=== PATIENT | female | born 1980 | race Caucasian/White ===

== ENCOUNTER → 2018-10-25 | Outpatient (CLI) | payer OTHER ==
[2014-02-22 10:29] VITALS: BMI 40.4
[~2018-10-25] MED LIST: ENOX80DI8 SQ; IBU600 PO; PER PO; PREN-85 PO
--- NOTE | 2018-10-25 17:44 | RADIOLOGY IMAGING REPORT ---
FACILITY: [facility] PATIENT NAME: Rachael Vasquez : 1980 MR: [id number] V: [id number] EXAM DATE: ORDERING PHYSICIAN: SAVITA LAKHANI TECHNOLOGIST: Location: [facility] [place] Patient: Rachael Vasquez : 1980 Visit/Account:[id number] Date of Sevice: 10/25/2018 CT ABDOMEN PELVIS W/O CON HISTORY: Left flank pain x2 weeks TECHNIQUE: Axial images acquired through the abdomen/pelvis. Coronal and sagittal reformatting also performed. No IV contrast administered.Dose Lowering Technique One of the following dose optimization techniques was utilized in the performance of this exam: Autom ated exposure control; adjustment of the mA and/or kV according to the patient's size; or use of an i terative reconstruction technique. Specific details can be referenced in the facility's radiology C T exam operational policy. COMPARISON: CTA chest September 03, 2013 FINDINGS: Visualized lung bases: There is a 4 mm noncalcified nodule in the lateral aspect of the right middle lobe best appreciated on image five of series 3. There is a 3 mm nodule right lower lobe best appreciated on image 13. There is a 6 mm noncalcified nodule lateral aspect right lower lobe best appreciated on image 39 . There is a 7 mm noncalcified slightly spiculated nodule inferior right lower lobe best appreciated on image 57 There is a 7 mm noncalcified nodule posterior aspect left lower lobe best seen on image 31 There is a 4 mm noncalcified nodule posterior aspect of the left lower lobe best seen on image 48 There is a 3 mm subpleural nodule lateral aspect left lower lobe best seen on image 51 Hepatobiliary: Right lobe the liver is enlarged measuring 20.7 cm in length. Spleen: Spleen is borderline enlarged at 12 cm Adrenals: Negative. Pancreas: Negative. 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 There are two metallic clips projecting in the lateral aspect of the right lower pelvis. These may have migrated from the right fallopian tube GI: The appendix is visualized and does not appear inflamed. Vessels/spaces/nodes: There are multiple lymph nodes adjacent to the gastrohepatic ligament. A refe rence node measures 1.3 x 1.1 cm. There appear to be multiple portal caval lymph nodes as well. The study is very limited due to lack of intravenous contrast. A passenger representative node measures 1.4 x 1.1 cm multiple retroperitoneal lymph nodes as well. A reference node measures 1.3 x 0.8 cm and the lef t periaortic region below the level of the renal vessels there multiple mesenteric lymph nodes as wel l a passenger representative node measures 1.3 x 0.8 cm Bones/soft tissues: There is a right lateral ventral hernia containing fat Additional findings: None pertinent. IMPRESSION: There are multiple noncalcified pulmonary nodules measuring up to 7 mm in diameter [employer] FOLLOW-UP GUIDELINES FOR NEWLY DETECTED INCIDENTAL NODULES IN PERSONS 35 YEARS OF AGE OR OLDER. *These recommendations do NOT apply to lung cancer screening, patients with immunosuppression or niecy ents with a known primary malignancy. MULTIPLE SOLID NODULES If nodule size is < 6 mm: * Low risk patient ? No routine follow-up. * High risk patient ? Optional CT at 12 months. If nodule size is 6-8 mm: * Low risk patient ? CT at 3-6 months, then consider CT at 18-24 months if no change. * High risk patient ? CT at 3-6 months, then CT at 18-24 months if no change. If nodule size is > 8 mm: * Low risk patient ? CT at 3-6 months, then consider CT at 18-24 months if no change. * High risk patient ? CT at 3-6 months, then consider CT at 18-24 months if no change. LOW RISK PATIENT: Minimal or absent history of tobacco use and of other known risk factors. HIGH RISK PATIENT: Toba co use, family history of lung cancer, upper pulmonary lobe location of nodul e, presence of emphysema, pulmonary fibrosis, older age.Brenda H, Damian DP, Thaddeus JM, et al. [employer] [facility] for Management of Incidental Pulmonary Nodules Detected on CT Images: From the [employer] 2017. Radiology. [facility] There are tubal ligation clips noted on the left. There are two additional similar-appearing clips i n the lateral aspect the right lower pelvis. These may have migrated from the right fallopian tube. There are numerous lymph nodes throughout the abdomen as described above. Although these may be reac tive given the multiple pulmonary nodules are malignant process should be excluded. The study is ozzie y limited due to the lack of intravenous and oral contrast or repeat study with oral and IV contrast may be of value Right lateral ventral hernia containing fat Report Dictated By: Alexandra Styles MD at 10/25/2018 5:06 PM Report E-Signed By: Alexandra Styles MD at 10/25/2018 5:40 PM WSN:[email or web address]
== END ==
LOC: CT 16:16
PROVIDERS: ATTEND Nurse Practitioner Family
DX: R91.8 Other nonspecific abnormal finding of lung field (principal)
CPT/HCPCS: 74176

== ENCOUNTER → 2018-11-07 | Outpatient (CLI) | payer OTHER ==
[2014-02-22 10:29] VITALS: BMI 40.4
[~2018-11-07] MED LIST changes: +IOPAMIDOL 76% 150 ML INFUS BTL 150 ML ONE
--- NOTE | 2018-11-07 11:44 | RADIOLOGY IMAGING REPORT ---
FACILITY: [facility] - [place] PATIENT NAME: Rachael Vasquez : 1980 MR: [id number] V: [id number] EXAM DATE: ORDERING PHYSICIAN: SAVITA LAKHANI TECHNOLOGIST: Location: Patient: Rachael Vasquez : 1980 Visit/Account:[id number] Date of Sevice: 11/07/2018 CT ABDOMEN PELVIS W/ CON HISTORY: Follow-up lymph nodes. TECHNIQUE: CT abdomen and pelvis 75 cc of Isovue 370 IV. One of the following dose optimization leila hniques was utilized in the performance of this exam: automated exposure control; adjustment of the m A and/or kV according to the patient's size; or use of an iterative reconstruction technique. Specif ic details can be referenced in the facility's radiology CT exam operational policy. COMPARISON: CT abdomen and pelvis 10/25/2018. FINDINGS: Liver/gallbladder: Multiple small hypoenhancing lesions are seen throughout all 7 the liver, each me asuring approximately 3 mm. Gallbladder is normal. Spleen: Normal. Adrenals: Normal. Pancreas: Normal enhancement without evidence of mass. Kidneys/: The right and left kidney demonstrate normal enhancement without evidence of hydronephro sis or mass. Both ureters are normal. Pelvis: Urinary bladder and uterus are normal. Fallopian tube clips are unchanged. GI: There is no focal abnormality in the small bowel or colon. Vessels/spaces/nodes: Multiple lymph nodes are seen along the root of the mesentery, largest measure s 1.1 cm, unchanged. Bones/soft tissues: There is a abdominal hernia consistent with a Spigelian hernia, with fat protrud ing through the defect on the right side, unchanged. Visualized lung bases: 7 mm pleural-based nodule seen in the left lung base, unchanged from the prio r study. There is a 7 mm nodule at the base of the right lung, unchanged. IMPRESSION: 1. Numerous, too many to count, small decreased enhancing lesions in all segments of the liver, each measuring approximately 3 to 5 mm. Differential diagnosis is broad, and would include benign causes such as hamartomas, as well as infectious causes such as microabscesses, as well as metastatic disea se. 2. Multiple slightly prominent lymph nodes along the root of the mesentery, unchanged from 10/25/2018 . Differential diagnosis includes a cystic adenitis or less likely lymphoma. 3. Pulmonary nodules both lung bases, unchanged from 10/25/2018. 4. Right-sided Spigelian hernia. Recommend ultrasound of the liver, for possible feasibility attempt in the future for an ultrasound-g uided biopsy of one of the numerous lesions identified. Report Dictated By: Cy Lee at 11/07/2018 11:23 AM Report E-Signed By: Cy Lee at 11/07/2018 11:39 AM WSN:[email or web address]
== END ==
LOC: CT 09:12
PROVIDERS: ATTEND Nurse Practitioner Family
DX: R93.2 Abnormal findings on diagnostic imaging of liver and biliary tract (principal); R91.8 Other nonspecific abnormal finding of lung field; R59.0 Localized enlarged lymph nodes
CPT/HCPCS: 74177; Q9967

== ENCOUNTER → 2018-11-13 | Outpatient (CLI) | payer OTHER ==
[2014-02-22 10:29] VITALS: BMI 40.4
[~2018-11-13] MED LIST changes: -IOPAMIDOL 76% 150 ML INFUS BTL 150 ML ONE
[2018-11-13 09:48] LABS: PLATELET COUNT, AUTOMATED 161 K/uL (150-450)
== END ==
LOC: LAB 09:34
PROVIDERS: ATTEND Nurse Practitioner Family
DX: K76.89 Other specified diseases of liver (principal)
CPT/HCPCS: 36415; 85025

== ENCOUNTER → 2018-11-21 | Outpatient (CLI) | payer OTHER ==
[2014-02-22 10:29] VITALS: BMI 40.4
[~2018-11-21] MED LIST changes: +IOPAMIDOL 76% 100 ML INFUS BTL 100 ML ONE
--- NOTE | 2018-11-21 10:43 | RADIOLOGY IMAGING REPORT ---
FACILITY: [facility] PATIENT NAME: Rachael Vasquez : 1980 MR: [id number] V: [id number] EXAM DATE: ORDERING PHYSICIAN: SAVITA LAKHANI TECHNOLOGIST: Location: [facility] Patient: Rachael Vasquez : 1980 Visit/Account:[id number] Date of Sevice: 11/21/2018 CT CHEST (CONTRAST) History: Pulmonary nodules TECHNIQUE: Contiguous axial images were performed through the chest to the level of the adrenal gla nds following the administration of IV contrast. Coronal and sagittal reformatting was also perform ed.Dose Lowering Technique One of the following dose optimization techniques was utilized in the performance of this exam: Autom ated exposure control; adjustment of the mA and/or kV according to the patient's size; or use of an i terative reconstruction technique. Specific details can be referenced in the facility's radiology C T exam operational policy. Contrast: 75 mL Isovue-370 COMPARISON STUDIES: CTA chest September 03, [address] abdomen November 07, 2018. Lungs / Pleura: There is a four mm noncalcified nodule in the posterior aspect right upper lobe bes t seen on image 69 of series 4. There is a 3 mm noncalcified nodule posterior lateral aspect right upper lobe best seen on image 74 There is a 3 mm noncalcified subpleural nodule medial aspect of the right upper lobe best seen on tierney ge 78 There is a 3 mm noncalcified nodule posterior aspect of the right upper lobe best seen on image 88 There is a 5 mm noncalcified nodule posterior aspect right upper lobe best seen on image 89 There is a 3 mm nodule on calcified nodule medial aspect right upper lobe best seen on image 99 There is a 5 mm noncalcified nodule medial aspect of the right upper lobe best seen on image 107 There is a 3 mm noncalcified nodule posterior aspect right upper lobe best seen on image 110 There is a 7 mm noncalcified nodule anterior lateral right upper lobe best seen on image 127. There are two separate 2 mm nodules inferior right upper lobe best seen on image 1:30 There is a 7 mm noncalcified nodule abutting the minor fissure best seen on image 148 There is a 3 mm nodule superior medial right middle lobe best seen on image 148 There is a 3 mm nodule anterior aspect right middle lobe best seen on image 176 There is a 4 mm nodule lateral aspect right middle lobe best seen on image 185 There is a 7 mm spiculated noncalcified nodule anterior aspect of the right lower lobe best seen on i mage 241 There is a 7 mm noncalcified nodule posterior lateral aspect of the left lower lobe best seen on imag e 222 There is a 2 mm noncalcified nodule anterior aspect the left lower lobe best seen on image 158 There is a 3 mm noncalcified nodule anterolateral left lower lobe best seen on image 142 There is a 2 mm noncalcified nodule anterior aspect left upper lobe best seen on image 140 There is a 2 mm nodule medial aspect of the left upper lobe best seen on image 123 There is a 3 mm noncalcified nodule posterior aspect of the left upper lobe best seen on image 1:15. There is an additional 3 mm nodule lateral aspect of the left upper lobe best seen on image 114 There is a 7 mm noncalcified nodule medial aspect left upper lobe best seen on image 97 There is a 7 mm subpleural nodule posterior aspect left upper lobe best seen on image 81 There is a 1 mm noncalcified nodule posterior aspect left upper lobe best seen on image 68 There is a 4 mm noncalcified nodule posterior lateral left upper lobe best seen on image 55 There is a 4 mm noncalcified nodule left upper lobe best seen on image 154 These nodules were not apparent on the prior CT the chest from September 03, 2013 Mediastinum/nodes: There is a 1.6 x 1.2 cm pretracheal lymph node in addition to other smaller pretr acheal lymph nodes.. There is a 1.5 x 1.1 cm precarinal lymph node. There is a 1.3 x 0.7 cm AP wind ow lymph node There is a 1.9 x 1.1 cm left hilar lymph node and a 1.2 x 1.3 cm left inf ahilar lymph node in additi on to numerous other hilar lymph nodesThere is a 1.3 x 1 cm left infrahilar lymph node. There is a 1 .9 x 1.2 cm right hilar lymph node in addition to a other right hilar lymph nodes.. There is a 2.3 x 1.5 cm subcarinal lymph node . These lymph nodes were not apparent on the prior CT of the chest Heart and vessels: negative. Musculoskeletal / Body wall: No aggressive appearing bone lesions are seen Upper abdomen: The numerous tiny hypoattenuating lesions seen on the recent CT of abdomen are not a s well depicted on the current examination although direct comparison is difficult as of this current examination is imaged in the arterial phase as opposed to the portal venous phase on the prior study IMPRESSION: At least 27 noncalcified pulmonary nodules are seen throughout the lungs as detailed above. These we re not apparent on a prior CT of the chest from September 03, 2013. Also noted is bilateral hilar and med iastinal adenopathy which was not present on the prior study. The differential diagnosis would inclu de metastatic disease although a benign etiology such as sarcoidosis are also included in the differe ntial diagnosis. The previously noted tiny hypoattenuating lesions throughout the liver as seen on November 07, 2018 are not as well depicted although the current examination was performed in the arterial phase as opposed to the portal venous phase on the prior study. If further evaluation of the liver is desired MR with an d without contrast may be helpful Report Dictated By: Alexandra Styles MD at 11/21/2018 9:59 AM Report E-Signed By: Alexandra Styles MD at 11/21/2018 10:39 AM WSN:[email or web address]
== END ==
LOC: CT 00:45
PROVIDERS: ATTEND Nurse Practitioner Family
DX: R91.1 Solitary pulmonary nodule (principal)
CPT/HCPCS: 71260; Q9967

== ENCOUNTER 2018-12-25 01:32 | Observation (INO) | payer OTHER ==
[2018-12-25] VITALS (13 sets, daily range): BP systolic 105–128; BP diastolic 62–88
[~2018-12-25] VITALS: Ht 154.9 cm; Wt 92.1 kg
[~2018-12-25 01:32] MED LIST changes: +ESCI20TA38 PO; -IOPAMIDOL 76% 100 ML INFUS BTL 100 ML ONE
[2018-12-25] MEDS ORDERED: DEXAMETHASONE SOD 4 MG/ML VIAL ONE (10:58)
[2018-12-25] MEDS ORDERED: LIDOCAINE MPF 1% 5 ML VIAL ONE (10:58)
[2018-12-25] MEDS ORDERED: fentaNYL CITR 250 MCG/5 ML AMP ONE (10:58)
[2018-12-25] MEDS ORDERED: ONDANSETRON 4 MG/2 ML VIAL ONE (10:58)
[2018-12-25] MEDS ORDERED: SUGAMMADEX SOD 200 MG/2 ML SDV ONE (10:58)
[2018-12-25] MEDS ORDERED: PROPOFOL EMUL(*) 10MG/ML 20 ML 20 ML ONE (10:58)
[2018-12-25] MEDS ORDERED: KETAMINE HCL-NS 50 MG/5 ML SYR ONE (10:59)
[2018-12-25] MEDS ORDERED: LEVOFLOXACIN/D5W 750 MG/150 ML 150 ML IVPB ONE (11:50)
[2018-12-25] MEDS ORDERED: CLINDAMYCIN(*) 600 MG/NS 50 ML 50 ML IVPB ONE (11:50)
[2018-12-25] MEDS ORDERED: NORMOSOL R SOLN(*) 1000 ML BAG 1,000 ML IV PRN (12:10)
[2018-12-25] MEDS ORDERED: FAMOTIDINE 20 MG TAB PO ONE (12:10)
[2018-12-25] MEDS ORDERED: LIDOCAINE/SOD BICARB 8.4% SYR ID ONE (12:10)
[2018-12-25] MEDS ORDERED: BUPIVACAINE/EPI 0.5% 50ML VIAL INFIL ONE (12:44)
[2018-12-25] MEDS ORDERED: ePHEDrine 25 MG/5 ML DISP.SYR IVP ONE (12:57)
[2018-12-25] MEDS ORDERED: ROCURONIUM BR 10 MG/ML 5 ML SY 5 ML ONE (13:26)
[2018-12-25] MEDS ORDERED: DESFLURANE 240 ML BTL INH ONE (13:38)
[2018-12-25] MEDS ORDERED: MIDAZOLAM 2 MG/2 ML VIAL IVP PRN (14:10)
[2018-12-25] MEDS ORDERED: PROMETHAZINE 25 MG/ML 1 ML AMP ONE (15:30)
[2018-12-25] MEDS ORDERED: fentaNYL CITR 100 MCG/2 ML AMP ONE ×2 (15:44→16:12)
[2018-12-25] MEDS ORDERED: HYDR-654 PO (15:53)
--- NOTE | 2018-12-25 15:59 | Post Operative Progress Note ---
Post Operative Progress Note Date: Dec 25, 2018 Time: 15:51 Surgeon: dr. tara tapia #[id number] Fleet Assistant: none Anesthesia: gen, local dr. agosto Pre-Op Diagnosis: ventral hernia Post-Op Diagnosis: same Procedure(s): robotic ventral hernia repair with mesh Complications: none Estimated Blood Loss: minimal Date OP Note Dictated: Dec 25, 2018 Time OP Note Dictated: 15:53 MARY TAPIA Dec 25, 2018 15:59
[2018-12-25] MEDS ORDERED: APAP/HYDROCODONE 325/7.5 TAB ONE (17:07)
[2018-12-25] MEDS ORDERED: ONDANSETRON 4 MG/2 ML VIAL IVP PRN (17:20)
[2018-12-25] MEDS ORDERED: APAP/HYDROCODONE 325/7.5 TAB PO PRN (17:20)
--- NOTE | 2018-12-25 18:25 | NUR ---
1700- SBAR RECEIVED FROM ARTURO DARBY. PT. RESTING AND EATING PUDDING. 1710- DR. ZEPEDA CALLED ASKIN ABOUT PT. TOLD THAT PT. IS IN A LOT OF PAIN AND HE DECIDED THAT HE WANTED TO ADMIT HER. 1714- PT. GIVEN PAIN PILL. 1725- PT. STATES THAT PAIN IS A 9/10 SO 50 MCG OF FENTANYL GIVEN. 1734- PT. STATES THAT PAIN IS 7/10 BUT TOLERABLE. 1745- PT. RESTING AND WHEN AROUSED STATES THAT PAIN IS 6/10. 1800- PT. TRANSPORTED TO MED/SURG VIA STRETCHER WITH THE SIDERAILS UP. SBAR GIVEN TO LOUIE DARBY. SEE DISCHARGE ASSESSMENT.
[2018-12-25] MEDS: HYDROmorphone HCL 2 MG/ML SDV IVP PRN (19:26)
[2018-12-25] MEDS: APAP/HYDROCODONE 325/7.5 TAB PO PRN (21:14)
[2018-12-25] MEDS: NS(*) 0.9% 1000 ML BAG 1,000 ML IV PRN (22:07)
--- NOTE | 2018-12-25 23:30 | OPERATIVE REPORT 1 ---
EVENT DATE: December 25, 2018 SURGEON: Haresh Moreno MD ANESTHESIOLOGIST: Romero Baldwin MD ANESTHESIA: General and local. IRON LAUNDER OPERATOR: None. PREOPERATIVE DIAGNOSIS Right spigelian hernia. POSTOPERATIVE DIAGNOSIS Right spigelian hernia. PROCEDURES PERFORMED 1. Robotic ventral hernia repair with mesh. 2. Laparoscopic lysis of adhesions times 10 minutes. FLUIDS IV crystalloid. ESTIMATED BLOOD LOSS Minimal. SPECIMENS None. COMPLICATIONS None. INDICATIONS This is a 38-year-old female with a right spigelian hernia that is bothersome to her. It is painful. On physical exam, the patient's abdomen is soft. She is stable. Risks and benefits of the procedure explained, and consent was signed. DESCRIPTION OF PROCEDURE Patient was taken to the operating room and placed in the supine position. General anesthesia was administered by the anesthesia team. Patient was prepped and draped in the normal sterile fashion. Local analgesia was injected in the dermis below the left costal margin, and a small incision was made. Optiview technique was used to easily enter the abdomen with an 8 mm port. I inspected the abdomen. There was no injury upon entry. After injecting the local analgesia and under direct vision, two more left-sided 8 mm ports were placed, and I decided to exchange the middle 8 mm port with a 12 mm port. LigaSure was used to take down fatty adhesions to the abdominal wall. Once this was done, the robot was docked. Cautery scissors was used to remove more adhered fat from the hernia and some of the hernia sac. This was later removed from the abdomen with an Endo Catch bag. Absorbable V-Loc stitches times two were used to close the hernia defect. A 10 x 15 cm Symbotex mesh was placed. It was secured with multiple absorbable V-Loc stitches on the perimeter and through the midline of the mesh. The mesh was confirmed to be laying flat. Hemostasis was assured. All needles were removed from the abdomen. Laparoscopically, the Endo Catch bag with the fatty tissue was removed, and the large port site was closed with the suture passer and 0 Vicryl stitch. Another port was removed under direct vision. Hemostasis was assured. Final port was then removed. All skin incisions were closed with 4-0 Monocryl subcuticular stitches. More local analgesia was injected. Appropriate dressings were applied. Patient tolerated the procedure well. There were no complications. MTDD
[2018-12-26] MEDS: HYDROmorphone HCL 2 MG/ML SDV IVP PRN (00:14)
[2018-12-26] MEDS: APAP/HYDROCODONE 325/7.5 TAB PO PRN ×4 (01:29→15:07)
[2018-12-26 02:55] VITALS: BP 109/65
--- NOTE | 2018-12-26 07:46 | General Surgery Progress Note ---
Subjective Progress Notes Subjective no acute events Physical Exam Vital Signs Date Time Temp Pulse Resp B/P (MAP) Pulse Ox O2 Delivery O2 Flow Rate FiO2 12/26/18 02:55 98.9 60 12 109/65 (80) 95 Nasal Cannula 3.0 Intake and Output 12/26/18 07:01 Intake Total 3844 ml Balance 3844 ml Intake Oral 1180 ml IV Total 2664 ml # Voids 3 General Appearance: No Acute Distress Cardiovascular: Other (reg rate) GI: Other (abd soft) Assessment and Plan Problems: (1) Spigelian hernia Assessment & Plan: s/p repair. doing well. adat. ambulate. home today. Exam Sepsis Risk: No Definite Risk MARY ZEPEDA Dec 26, 2018 07:46
[2018-12-26 08:06] VITALS: BP 105/55
[2018-12-26] MEDS ORDERED: ENOXAPARIN 40 MG/0.4ML SYR SC SCH (09:00)
[2018-12-26] MEDS ORDERED: ESCITALOPRAM OXALATE 10 MG TAB PO SCH (09:00)
[2018-12-26 11:30] VITALS: BP 110/66
[2018-12-26] MEDS: NS(*) 0.9% 1000 ML BAG 1,000 ML IV PRN (11:33)
[2018-12-26 11:55] VITALS: Ht 154.9 cm; Wt 92.1 kg
[2018-12-26] MEDS ORDERED: KETOROLAC 30 MG/ML VIAL IVP SCH (12:00)
--- NOTE | 2018-12-26 13:44 | Hospitalist Depart ---
Discharge Summary Reason for Hosp/Final Diag: (1) Spigelian hernia Hospital Course & Plan: s/p repair. doing well. adat. ambulate. home today. Departure Weight (Pounds): 203 Condition: Improved Discharge: Home Discharge Instructions Home Meds Active Scripts Hydrocodone Bit/Acetaminophen (NORCO 7.5-325 TABLET) 1 Each Tablet, 1 EACH PO Q4H PRN for PAIN, #20 TAB Prov:MARY TAPIA 12/25/18 Reported Medications Escitalopram Oxalate (LEXAPRO) 20 Mg Tablet, 10 MG PO QDAY, TAB 11/28/18 Diet: Regular Activity: No Heavy Lifting Special Instructions: no lifting more than 15 lbs for 6 wks. ok to shower tomorrow. take stool softener whild taking pain meds. f/u dr. tara tapia 2 wks ([phone]). Venous Thromboembolism Antithrombotics Is Pt On Any Antithrombotics?: Yes MARY TAPIA Dec 26, 2018 13:44
== END 2018-12-26 13:42 | disposition home or self-care (01) ==
LOC: OR 01:32 → MED 18:00
PROVIDERS: ADMIT Surgery; ATTEND Surgery
DX: K43.9 Ventral hernia without obstruction or gangrene (principal)
CPT/HCPCS: 49652; 81025; 96372; C1781; G0378; J1100; J1170; J1650; J1885; J1956; J2001; J2405; J2550; J2704; J3010; J3490; J7030; S2900